=== PATIENT | male | born 2000 | race Hispanic/Latino ===

== ENCOUNTER 2025-02-07 02:23 | Emergency (ER) | payer SELFPAY ==
[2025-02-07] MEDS ORDERED: Bacitracin 1 PK ONE (03:05)
== END 2025-02-07 05:43 | disposition home or self-care (01) ==
LOC: ERS 02:23
DX: S61.432A Puncture wound without foreign body of left hand, initial encounter (principal); Z23 Encounter for immunization; Y22.XXXA Handgun discharge, undetermined intent, initial encounter
CPT/HCPCS: 90471; 90715